=== PATIENT | female | born 1985 | race Caucasian/White ===

== ENCOUNTER 2016-10-24 22:56 | Outpatient (CLI) | payer MEDICAID ==
[2016-10-24 23:55] LABS: APPEARANCE,URINE CLEAR; BILIRUBIN,URINE NEGATIVE (NEGATIVE); GLUCOSE, URINE NEGATIVE (NEGATIVE); KETONES,URINE NEGATIVE (NEGATIVE); LEUKOCYTE ESTERASE,URINE NEGATIVE (NEGATIVE); NITRITE,URINE NEGATIVE (NEGATIVE); PROTEIN,URINE NEGATIVE (NEGATIVE); URINE SPECIFIC GRAVITY 1.003; UROBILINOGEN,URINE NEGATIVE mg/dL (<2.0)
[2016-10-24 23:57] LABS: URINE BARBITURATES SCREEN NEGATIVE; URINE METHADONE SCREEN NEGATIVE; URINE OPIATES LOW NEGATIVE; URINE PHENCYCLIDINE SCREEN NEGATIVE
--- NOTE | 2016-10-25 00:18 | Non Stress Test Report ---
Non Stress Test Datetime Report Generated by CPN: 10/25/2016 00:18 DEMOGRAPHIC Test Number: 1 EGA NST: 33.1 INDICATION Indication for Study: Ordered by Provider VITAL SIGNS Temperature - NST: 98.2 MONITORING Monitor Explained: Monitor Explained; Test Explained Time on Monitor: 10/24/2016 23:16 Time off Monitor: 10/25/2016 00:02 NST Duration: 46 NST INTERVENTIONS NST Interventions: PO Hydration Physician Notified NST: Sinha BABY A: [id number] BABY A Movement : Present Contraction Frequency : Irritability FHR Baseline : 140 Accelerations : 15X15 Decelerations : None Variability : Moderate 6-25bpm NST Review: Meets Criteria for Reactive NST NST Review and Verified By : Eliseo Lamas RN NSClark Results: Reactive NST REPORT Report Trigger: Send Report
== END 2016-10-25 00:15 | disposition home or self-care (01) ==
LOC: LC 22:56
PROVIDERS: ATTEND Obstetrics & Gynecology
DX: O47.03 False labor before 37 completed weeks of gestation, third trimester (principal); O46.8X3 Other antepartum hemorrhage, third trimester; N93.0 Postcoital and contact bleeding; Z3A.33 33 weeks gestation of pregnancy
CPT/HCPCS: 59025; 80307; 81001